=== PATIENT | male | born 1960 | race Caucasian/White ===

== ENCOUNTER → 2022-10-27 | Outpatient (CLI) | payer BC | LOC: MHCPAIN 10:00 | DX: M51.16 Intervertebral disc disorders with radiculopathy, lumbar region (principal); M47.896 Other spondylosis, lumbar region | CPT/HCPCS: G0463 ==

== ENCOUNTER → 2022-11-17 | Outpatient (CLI) | payer BC | LOC: MHCPAIN 11-06 12:52 | DX: M51.16 Intervertebral disc disorders with radiculopathy, lumbar region (principal); M54.50 Low back pain, unspecified; M53.3 Sacrococcygeal disorders, not elsewhere classified | CPT/HCPCS: J1100; Q9967 ==

== ENCOUNTER → 2023-07-03 | Outpatient (CLI) | payer BC | LOC: COL.RAD 07:44 | DX: R91.8 Other nonspecific abnormal finding of lung field (principal); Z87.898 Personal history of other specified conditions | CPT/HCPCS: Q9967 ==